=== PATIENT | female | born 1975 | race Caucasian/White ===

== ENCOUNTER 2024-11-28 07:41 | Outpatient (RCR) | payer MEDICAID, SELFPAY ==
--- NOTE | 2024-11-17 18:57 | CTCCONSULT_ITS ---
Patient: ROSA RICHARD : 1975 MR#: [id number] Page 2 of 3 CONSULTATION NOTE DATE OF CONSULTATION: 11/14/2024 NAME: ROSA RICHARD ACCOUNT: [id number] : 1975 AGE: 49 REFERRING PHYSICIAN: Veronica Cespedes MD PRIMARY PHYSICIAN: Veronica Cespedes MD REASON FOR VISIT: Request for mammogram secondary to high risk family history HISTORY OF PRESENT ILLNESS: 49-year-old female is here to establish care. Patient says that her sister who was 1 year younger th an her last month of breast cancer. Patient also had an aunt who in her 30s and another si ster who at 47. Patient's grandma also had breast cancer. Patient's mother also away and is brought to the clinic with her aunt. No self history of breast cancer. OTHER MEDICAL HISTORY/CONDITIONS: ASTHMA HX ANEMIA HIGH CHOLESTEROL ENDOMETRISIS CHROHNS DISEASE SCHIZOPHRENIA/BIPOLAR DISORDER ANXIETY/DEPRESSION PTSD SEIZURES- LAST SZ 3 DAYS AGO FIBROMYALGIA OSTEOPENIA UTIS CARPAL TUNNEL SUICIDE ATTEMPTS BY MULTIPLE DRUG OVERDOSES/BENZODIAZEPINES KIDNEY STONES LEFT SIDE PARTIAL HYSTERECTOMY 2017 APPENDECTOMY CHOLECYSTECTOMY TUBAL LIGATION , LEFT OVARY REMOVED EXPLORATORY LAPAROTOMY EGD/COLONOSCOPY LAST YEAR FAMILY HISTORY: Father: COLON CANCER DX AT 71, UNCLE AND GRANDPA PROSTATE CA Mother: DENIES, MATERNAL GRANDMA BREAST CANCER DX AT 62, AUNT UTERIN Sibling: SISTER PASSED IN 40S, FROM BREAST CANCER Children:?DENIES Cancer?History:?DENIES SOCIAL HISTORY: Occupational?History:?DISABLED Education?Level:?Completed 10th grade Marital?Status:? Tobacco?Use:?DENIES ETOH?Use:?DENIES Drug?Note:?DENIES [employer] WORKER HISTORY: Menarche?-?Age:?14 Hormone?Use:?ADMITS?BC?PILLS?IN?PAST :?5 Live?Births:?4 Age?1st?:?17 Nipple?discharge:?N-No Gynecological?Note:?LAST MENSES IN 2017/HYSTERECTOMY Gynecological?Note?2:?4 MATERNAL AUNTS, 3 SISTERS, 2 DAUGHTERS MEDICATIONS: 1. albuterol - 90 mcg/actuation 1 Puff(s) As directed 2. Arnuity Ellipta - 200 mcg/actuation 2 Puff(s) As directed 3. divalproex - 500 mg 2 tab Daily 4. folic acid - 1 mg 1 tab Daily 5. hydroxyzine HCl - 25 mg 1 tab Daily 6. lamoTRIgine - 100 mg 1 tab Daily 7. loratadine - 10 mg 1 Capsule Daily 8. lurasidone - 20 mg 1 tab Daily 9. omeprazole - 40 mg 1 Capsule Daily 10. ondansetron - 4 mg 1 tab Daily 11. prazosin - 1 mg 1 Capsule Daily Medications Last Reconciled by Jaclyn Slater MD on 11/14/2024 ALLERGIES: No Known Allergies REVIEW OF SYSTEMS: A complete 14-point review of systems was performed and is negative except as noted in interval histo ry. PHYSICAL EXAMINATION: VITAL SIGNS: Temperature?97.7, B/P?105/72, Height?64?inches, Oxygen?Saturation?96% Weight?132?lbs PAIN: 0 - No pain ECOG Performance Status: 0 - Asymptomatic and fully active GENERAL APPEARANCE: Appears well, in no apparent distress, appropriately interactive. HEENT: Normocephalic, no temporal wasting, normal conjunctiva, no scleral icterus, normal hearing, li ps without lesions, neck normal range of motion. CARDIOVASCULAR: Not assessed. PULMONARY: Normal respiratory effort, no respiratory distress or use of accessory muscles, speaking i n full sentences, no tachypnea. EXTREMITIES: No pedal edema or cyanosis. SKIN: Normal skin appearance. NEUROLOGIC: Alert and oriented x4. PSHYCHIATRIC: Appropriate affect, mood normal, behavior normal, intact thought and speech. Breast examination do not reveal any palpable masses LABORATORY DATA: I have personally reviewed and interpreted each of Ms. Richard?s relevant lab tests, abnormal finding s are below: Date ASSESSMENT/PLAN: High risk genetic history of breast cancer Patient is likely high risk through get breast cancer secondary to first and second-degree relatives with breast cancer Also history of prostate cancer in the family Patient is good candidate to start early screening ORDERS: Please refer patient to: RETURN TO CLINIC: BILLING AND COMPLIANCE: I reviewed external records from providers outside my specialty as summarized above. I spent a total of 50 minutes on this patient?s care on the day of their visit excluding time spent related to any bi lled procedures. This time includes time spent with the patient as well as time spent documenting in the medical record, reviewing patients records and tests, obtaining history, placing orders, communi cating with other healthcare professionals, counseling the patient, family or caregiver, and/or care coordination for the diagnoses above. Electronically Signed by: Cliff Simpson MD T: 6:54 PM CC: PCP: Veronica Cespedes Referring: Veronica Cespedes This document was completed utilizing speech recognition software. Grammatical errors, random word in sertions, pronoun errors, and incomplete sentences are an occasional consequence of this system due t o software limitations, ambient noise, and hardware issues. Any formal questions or concerns about th e content, text or information contained within the body of this dictation should be directly address ed to the provider for clarification.
[2024-11-28 09:02] LABS: Misc Send Out* See Sep Rpt
== END 2024-12-06 23:59 | disposition home or self-care (01) ==
LOC: SCTC 07:41
PROVIDERS: PCP Physician Assistant; Referring Provider Physician Assistant; Visit Provider Internal Medicine Hematology & Oncology
DX: Z76.89 Persons encountering health services in other specified circumstances (principal); Z80.3 Family history of malignant neoplasm of breast; Z80.42 Family history of malignant neoplasm of prostate
CPT/HCPCS: 36415; 99213; G0463

== ENCOUNTER → 2024-12-13 | Outpatient (CLI) | payer MEDICAID, SELFPAY ==
--- NOTE | 2024-12-13 14:45 | XR_ITS ---
Examination: Screening digital mammography, bilateral Computer aided detection 3-D breast Tomosynthesis, bilateral Date and time of exam: December 13, 2024 1509 hours Compared to mammograms dating February 21, 2013 Indication: Screening, NST, sister breast cancer Technique: Nonmagnified MLO, CC views of the breasts to been obtained, reconstructed from 3-D Tomosynthesis images. R2 computer aided detection program utilized for evaluation of suspicious masses and/or abnormal calcifications. 3-D Tomosynthesis images obtained. Findings: The breasts are heterogeneously dense, which may obscure small masses Benign calcifications. No suspicious masses Impression: BI-RADS category II: Benign Findings. Recommend 1 year follow-up mammogram. Given the strong family history breast cancer, consider baseline bilateral breast sonography follow-up
== END | disposition home or self-care (01) ==
LOC: CDIM 14:52
PROVIDERS: Referring Provider Internal Medicine Hematology & Oncology; Visit Provider Internal Medicine Hematology & Oncology
DX: Z12.31 Encounter for screening mammogram for malignant neoplasm of breast (principal); R92.323 Mammographic fibroglandular density, bilateral breasts; Z80.3 Family history of malignant neoplasm of breast
CPT/HCPCS: 77063; 77067

== ENCOUNTER 2024-12-16 07:26 | Outpatient (RCR) | payer MEDICAID, SELFPAY | END 2025-01-03 23:59 | disposition home or self-care (01) | LOC: SCTC 07:26 | PROVIDERS: PCP Physician Assistant; Referring Provider Physician Assistant; Visit Provider Nurse Practitioner Family | DX: Z71.2 Person consulting for explanation of examination or test findings (principal); Z80.3 Family history of malignant neoplasm of breast; Z80.42 Family history of malignant neoplasm of prostate | CPT/HCPCS: 99212; G0463 ==

== ENCOUNTER → 2025-02-17 | Outpatient (CLI) | payer MEDICAID, SELFPAY ==
--- NOTE | 2025-02-17 15:30 | XR_ITS ---
Examination: Breast ultrasound complete, bilateral Date and time of exam: February 17, 2025 at 1537 hours INDICATIONS: Family history breast cancer Technique: Real-time grayscale ultrasonographic imaging bilateral breasts, including all 4 quadrants as well as nipple retroareolar and axillary regions. Findings: Sonographic images right breast No cystic or solid mass Sonographic images left breast 1:00 cyst 9 x 8 mm 3:00 oval mass lobular margins 9 x 8 mm 6:00 cyst 5 x 4 mm IMPRESSION: BI-RADS Category 3: Probably benign findings One additional 6 month left breast sonogram follow-up is needed to document stability of 3:00 solid nodule left breast described above
== END | disposition home or self-care (01) ==
LOC: CDIM 15:08
PROVIDERS: PCP Physician Assistant; Referring Provider Nurse Practitioner Family; Visit Provider Nurse Practitioner Family
DX: N63.25 Unspecified lump in the left breast, overlapping quadrants (principal); Z80.3 Family history of malignant neoplasm of breast
CPT/HCPCS: 76641

== ENCOUNTER → 2025-02-27 | Outpatient (CLI) | payer MEDICAID, SELFPAY ==
--- NOTE | 2025-02-27 09:30 | XR_ITS ---
Examination: MRI breasts bilateral without intravenous contrast MRI breast bilateral with intravenous contrast Exam date and time: February 27, 2025 0950 hours Comparison bilateral breast sonography February 17, 2025, mammogram December 13, 2024 INDICATIONS: Family history breast cancer, including sister and grandmother Technique an findings: Bilateral breast MRI images pre and post 12 cc gadolinium Breast architecture is heterogeneously dense, which may obscure small masses No suspicious dominant mass lesion No architectural distortion No chest wall mass or pathologic lymphadenopathy No focal areas on the kinetic analysis curves of rapid wash-in and rapid washout IMPRESSION: BI-RADS Category 2: Benign findings Please see the bilateral breast sonography report February 17, 2025 requiring six-month left breast sonogram follow-up
== END | disposition home or self-care (01) ==
PROVIDERS: PCP Physician Assistant; Referring Provider Nurse Practitioner Family; Visit Provider Nurse Practitioner Family
DX: R92.8 Other abnormal and inconclusive findings on diagnostic imaging of breast (principal); Z80.3 Family history of malignant neoplasm of breast
CPT/HCPCS: 77049; A9579; C8908

== ENCOUNTER 2025-03-11 15:17 | Outpatient (RCR) | payer MEDICAID, SELFPAY | END 2025-04-05 23:59 | disposition home or self-care (01) | LOC: SCTC 15:17 | PROVIDERS: PCP Physician Assistant; Referring Provider Physician Assistant; Visit Provider Nurse Practitioner Family | DX: N63.25 Unspecified lump in the left breast, overlapping quadrants (principal); Z15.01 Genetic susceptibility to malignant neoplasm of breast; Z15.09 Genetic susceptibility to other malignant neoplasm; Z80.3 Family history of malignant neoplasm of breast; Z80.42 Family history of malignant neoplasm of prostate; Z80.0 Family history of malignant neoplasm of digestive organs | CPT/HCPCS: 99212; G0463 ==

== ENCOUNTER 2025-04-05 10:26 | Emergency (ER) | payer MEDICAID, SELFPAY ==
[2025-04-05 10:52] VITALS: BP 101/65; PULSE 72; RESP 16; TEMP 36.6; O2SAT 97; BMI 23.7
--- NOTE | 2025-04-05 11:23 | XR_ITS ---
Examination: Pelvic ultrasound, transabdominal, complete Technique: Transabdominal ultrasound of the pelvis performed using grayscale imaging Date and time of exam: April 05, 2025 1132 hrs. Indications: Pelvic pain beginning 2 days ago Findings: Absent uterus Right ovary 2.4 cm arterial flow Left ovary removed 2018 Impression: Normal right ovary
--- NOTE | 2025-04-05 11:24 | EDRME_ITS ---
<Statement entered by Ivette Barnes MD - 04/15/25 01:01> As co-signing physician, I was present and available for consult prn. I concur with the plan and care as documented by the midlevel provider. Rapid Medical Screening Exam RME Arrival date/time: 04/05/25 10:26 This is a 49-year-old female that comes in with complaints of right lower pelvic pain. Patient states she is having some mild vaginal bleeding. Patient states she has had a history of ovarian cyst rupture in the past. Patient denies any urinary symptoms. Patient denies any fever. She states she has had a hysterectomy in the past. I have greeted and performed a focused initial assessment of this patient. Init ial appropriate labs ordered at this time. A comprehensive ED assessment and evaluation of the patient and analysis of all test and completion of medical decision making process will be conducted by additional ED provider. Chief Complaint: Abdominal Pain Time Seen by Provider: 04/05/25 11:14 Vital signs: Vital Signs Temperature 97.8 F 04/05/25 10:52 Pulse Rate 72 04/05/25 10:52 Respiratory Rate 16 04/05/25 10:52 Blood Pressure 101/65 04/05/25 10:52 Pulse Oximetry (%) 97 04/05/25 10:52 Oxygen Delivery Method Room Air 04/05/25 10:52
[2025-04-05 12:16] LABS: Collection Type, Urine Voided
[2025-04-05 12:18] LABS: Basophils % (Auto) 1 % (0-2.5); Eosinophils # (Auto) 0.1 Thou/mm3 (0.0-0.5); Eosinophils % (Auto) 1 % (0-10); Hematocrit 35.1 % (36.0-46.0); Hemoglobin 12.1 g/dL (12.0-16.0); Immature Granulocytes % (Auto) 0 % (0-0); Immature Granulocytes Auto 0.02 Thou/mm3 (0.00-0.00); Lymphocytes # (Auto) 1.9 Thou/mm3 (1.0-4.8); Lymphocytes % (Auto) 32 % (10-50); Mean Corpuscular HGB Conc 34.5 g/dl (31.0-37.0); Mean Corpuscular Hemoglobin 30.2 pg (25.0-35.0); Mean Corpuscular Volume 88 fL (80-100); Monocytes # (Auto) 0.4 Thou/mm3 (0.0-0.8); Monocytes % (Auto) 7 % (0-12); Neutrophils # (Auto) 3.5 Thou/mm3 (1.8-7.7); Neutrophils % (Auto) 59 % (37-80); Nucleated Red Blood Cell % 0 /100 WBC (0); Platelet Count 199 Thou/mm3 (140-440); RDW Standard Deviation 41.7 fL (36.4-46.3); Red Blood Count 4.01 Miln/mm3 (4.00-5.20); White Blood Count 5.8 Thou/mm3 (3.6-11.0)
[2025-04-05 12:36] LABS: Bilirubin,Urine Negative (Negative); Blood,Urine Negative (Negative); Clarity,Urine Turbid (Clear/Hazy); Color,Urine Yellow (Lt Yel-Yel); Culture Indicated,Urine Not Indicated; Glucose, Urine Negative (Negative); Ketones,Urine 1+ (Negative); Leukocyte Esterase,Urine Positive (Negative); Nitrite,Urine Negative (Negative); PH,Urine 6.5 (5.0-7.0); Protein,Urine Trace (Neg - Trace); RBC,Urine 12 /hpf (0-3); Specific Gravity,Urine 1.029 (1.001-1.035); Squamous Epithelial Cell,Urine 17 /hpf (0-5); Urobilinogen,Urine Negative mg/dL (0.0-1.0); WBC,Urine 6 /hpf (0-5)
[2025-04-05 12:37] LABS: Alanine Aminotransferase 12 U/L (10-49); Albumin, Serum 4.7 gm/dL (3.5-5.0); Albumin/Globulin Ratio 2.4 (1.2-2.2); Alkaline Phosphatase 47 U/L (46-116); Anion Gap 11 (7-16); Aspartate Amino Transferase 15 U/L (0-34); BUN/Creatinine Ratio 23 Ratio (12-20); Bilirubin,Total 0.4 mg/dL (0.3-1.2); Blood Urea Nitrogen 21 mg/dL (9-23); Calcium 9.1 mg/dL (8.3-10.6); Calcium (Corrected) 9.1 mg/dL (8.5-10.1); Carbon Dioxide 32.2 mMol/L (20.0-31.0); Chloride 105 mMol/L (98-107); Creatinine (Component) 0.9 mg/dL (0.6-1.3); Glucose 89 mg/dL (74-106); Lipase 28 U/L (12-53); Osmolality,Calculated 296 (275-295); Potassium 4.3 mMol/L (3.4-5.1); Sodium 148 mMol/L (136-145); Total Protein 6.7 gm/dL (5.7-8.2); eGFR > 60 See Note
[2025-04-05 12:45] LABS: HCG Qualitative,Urine Negative
--- NOTE | 2025-04-05 16:33 | XR_ITS ---
Examination: CT abdomen with intravenous contrast CT pelvis with intravenous contrast 2-D coronal reconstructions 2-D sagittal reconstructions Date and time of exam:April 05, 2025 1752 hours Comparison January 27, 2024 INDICATIONS: Right lower abdominal pain beginning 2 days ago, history right hydronephrosis 4 mm distal right ureteral calculus January 27, 2024. CTDI: vol (mGy) 6.5 DLP: (mGycm) 325 Technique: Multiple axial sections of the abdomen and pelvis have been obtained. 64 slice high-resolution scanner used. 3 mm axial sections have been obtained, post intravenous injection 60 cc of Isovue 370 2-D sagittal, coronal reconstructions obtained. Low dose protocols were performed. One or more of the following dose reduction techniques were used; automated exposure control, adjustment of the mA and/or KV according to patient size, use of iterative reconstruction technique. Findings: No focal liver or splenic lesions Absent gallbladder No pancreatic or adrenal mass Minimal wall thickening right pelvicalyceal system, no renal or ureteral calculi, no hydronephrosis Absent appendix, no pericecal inflammatory change No bowel obstruction No diverticulitis Contracted urinary bladder Moderate osteopenia Absent uterus No pelvic mass IMPRESSION: Minimal wall thickening right pelvicalyceal system, consider right urinary tract infection No renal or ureteral calculi, no hydronephrosis No CT findings of bowel obstruction or diverticulitis
--- NOTE | 2025-04-05 16:34 | PD.EDABDPN ---
ED Abdominal Pain RME/HPI General Chief Complaint: Abdominal Pain Stated complaint: abdominal pain Time seen by provider: 04/05/25 11:14 Arrival date/time: 04/05/25 10:26 RME / HPI RME / HPI narrative: 49-year-old female that comes in with complaints of right lower abdomen/pelvic pain. Patient states she is having some mild vaginal bleeding. Pain is described as dull ache, severity moderate. Patient states she has had a history of ovarian cyst rupture in the past. Patient denies any urinary symptoms. Patient denies any fever. She states she has had a hysterectomy in the past. Related Data Home Medications ?Medication ?Instructions ?Recorded ?Confirmed azathioprine 50 mg tablet (Imuran) 50 mg PO QDAY #0 tabs 05/15/17 06/23/21 prazosin 1 mg capsule (Minipress) 1 mg PO HS #0 caps 05/17/17 06/23/21 sulfasalazine 500 mg tablet 1 tab PO TID ##0 05/17/17 06/23/21 albuterol sulfate 90 mcg/actuation 2 puff inhalation Q4HR PRN 05/29/17 06/23/21 aerosol inhaler (Ventolin HFA) SHORTNESS OF BREATH OR WHEEZE ##18 divalproex 500 mg tablet,extended 2,000 mg PO QDAY 05/21/19 06/23/21 release 24 hr (Depakote ER) lurasidone 20 mg tablet (Latuda) 20 mg PO QDAY 05/21/19 06/23/21 fluticasone furoate 200 1 inh inhalation Q24H 06/23/21 06/23/21 mcg/actuation blister powder for inhalation (Arnuity Ellipta) folic acid 1 mg tablet 1 mg PO QDAY 06/23/21 06/23/21 hydroxyzine HCl 25 mg tablet 25 mg PO BID PRN Anxiety 06/23/21 06/23/21 Previous Rx's ?Medication ?Instructions ?Recorded ondansetron HCl 4 mg tablet 4 mg PO QID PRN nausea and 09/26/19 (Zofran) vomiting #30 tabs albuterol sulfate 90 mcg/actuation 2 puff inhalation QID PRN 05/29/21 aerosol inhaler shortness of breath or wheezing #18 grams docusate sodium 100 mg capsule 100 mg PO BID #40 caps 06/24/21 (Colace) hydrocodone 5 mg-acetaminophen 325 1 tab PO Q6H PRN pain (scale score 06/24/21 mg tablet 7-10) #20 tabs ibuprofen 600 mg tablet 600 mg PO Q8H PRN pain (scale 06/24/21 score 4-6) #15 tabs dicyclomine 20 mg tablet 20 mg PO BID abdominal pain #30 05/13/22 tabs hydrocodone 7.5 mg-acetaminophen 1 tab PO Q6H PRN pain #16 tabs 01/27/24 325 mg tablet ibuprofen 600 mg tablet 600 mg PO Q8H PRN pain #14 tabs 02/01/24 tamsulosin 0.4 mg capsule 0.4 mg PO QDAY #7 caps 02/01/24 ibuprofen 600 mg tablet 600 mg PO Q6H #30 tabs 05/06/24 hydrocodone 5 mg-acetaminophen 325 1 tab PO BID PRN pain #10 tabs 05/29/24 mg tablet cefuroxime axetil 500 mg tablet 500 mg PO BID #14 tabs 04/05/25 ibuprofen 800 mg tablet 800 mg PO TID PRN pain #30 tabs 04/05/25 Allergies Allergy/AdvReac Type Severity Reaction Status Date / Time No Known Allergies Allergy Verified 04/05/25 10:29 Review of Systems Review of Systems Narrative Review of Systems: Review of system reviewed and within normal limits except mentioned in HPI ED Exam Narrative Physical exam: VITAL SIGNS: Reviewed. GENERAL APPEARANCE: Alert and interactive, follows commands, no acute distress, HEAD AND FACE: Non-traumatic. ENT: PERRL, pink conjunctivitis, eyelid no trauma, Mucous membrane moist. NECK: Supple, nontender, no nuchal rigidity. CHEST: No tenderness, no crepitus, no paradoxical movement, no retractions. LUNGS: Clear, well ventilated, symmetric, no rales, no wheezing, no ronchi, no stridor, good breath sounds bilaterally. HEART: Regular rate, regular rhythm, no murmur, no gallops. ABDOMEN: Soft, positive bowel sounds, nondistended, no guarding, right lower quadrant tenderness, no rebound, no masses, RECTAL: Deferred. GENITAL: Deferred. NEUROLOGICAL: Gross motor function intact sensory function intact, Appropriate for age. MUSCULOSKELETAL: low back nontender, full range of motion. EXTREMITIES: Nontender, full range of motion. SKIN: Color pink, dry, no rash, no lacerations, no abrasions, no contusions. LYMPHATICS: Deferred. Course Quality Measures none Orders Category Date Time Status CT Screening NOW Care 04/05/25 16:[address] abdomen pelvis w con Stat Exams 04/05/25 16:33 Completed US pelvic complete Stat Exams 04/05/25 11:23 Completed CBC Stat Lab 04/05/25 12:02 Completed Comprehensive Metabolic Panel Stat Lab 04/05/25 12:02 Completed HCG Qualitative,Urine Stat Lab 04/05/25 12:00 Completed Lipase Stat Lab 04/05/25 12:02 Completed Urinalysis, C/S if Indicated Stat Lab 04/05/25 12:00 Completed Ketorolac Inj [Toradol Inj] Med 04/05/25 16:33 Discontinued 30 mg IVP X1 ONE Ondansetron Inj [Zofran Inj] Med 04/05/25 18:09 Discontinued 4 mg IVP X1 ONE cephALEXin [Keflex] Med 04/05/25 16:34 Discontinued 500 mg PO X1 ONE Vital Signs Vital signs: Vital Signs Temperature 97.8 F 04/05/25 10:52 Pulse Rate 72 04/05/25 10:52 Respiratory Rate 16 04/05/25 10:52 Blood Pressure 101/65 04/05/25 10:52 Pulse Oximetry (%) 97 04/05/25 10:52 Oxygen Delivery Method Room Air 04/05/25 10:52 Abdominal Pain MDM MDM Narrative MDM Narrative:: 49-year-old female that comes in with complaints of right lower abdomen/pelvic pain. Patient states she is having some mild vaginal bleeding. Pain is described as dull ache, severity moderate. Patient states she has had a history of ovarian cyst rupture in the past. Patient denies any urinary symptoms. Patient denies any fever. She states she has had a hysterectomy in the past. Patient's workup is significant for a UTI. Ultrasound of the pelvis came back unremarkable. CT scan of the abdomen pelvis showed Minimal wall thickening right pelvicalyceal system, consider right urinary tract infection No renal or ureteral calculi, no hydronephrosis No CT findings of bowel obstruction or diverticulitis Patient received Toradol IM and Keflex. Was also given Zofran. Patient data External records reviewed:: None Clinical information provided by:: patient Social determinants that could affect healthcare access:: none Patient has the following chronic illnesses:: None How is presenting disease/condition affected by chronic disease/condition?: no chronic disease Evaluation data The following diagnostics were reviewed and interpreted by me:: lab results and radiology exam(s) Lab and/or radiology exams considered but not ordered:: None Interpretation Summary: See results MDM Medications / Prescriptions Medications or Prescriptions considered but not ordered:: None Medication administrations:: Medication Administration History Discontinued Medications Cephalexin HCl (Cephalexin 250 Mg Capsule) 500 mg PO X1 ONE Stop: 04/05/25 16:35 Last Admin: 04/05/25 17:30 Dose: 500 mg Documented By: Ketorolac Tromethamine (Ketorolac Inj 30 Mg/Ml Vial) 30 mg IVP X1 ONE Stop: 04/05/25 16:34 Last Admin: 04/05/25 17:30 Dose: 30 mg Documented By: Ondansetron HCl (Ondansetron Inj 2 Mg/Ml Inj 2 Ml) 4 mg IVP X1 ONE; Protocol Stop: 04/05/25 18:10 Zofran Toradol and Keflex Consultations Consultation(s) initiated? (list below): No Diagnosis Differential diagnosis abdominal pain: abdominal pain, small bowel obstruction and other (UTI) Most likely diagnosis given after review of the tests above:: UTI Admission Indicated Admission indicated?: not indicated Admission Request Was there a request for admission?: No Disposition Plan Disposition Plan: Discharge Discharge Attestation Discharge Attestation: The patient and all family members were given an opportunity to ask questions and understood the discharge instructions. Discharge instructions specifically effects, indications for sooner follow up or return to the emergency department, and the expected course of current diagnosis. Patient condition: Stable Discharge Plan Plan Patient Disposition: HOME (Self Care) Discharge Disposition comment: Stable Prescriptions/Referrals Prescriptions/Med Rec: New cefuroxime axetil 500 mg tablet 500 mg PO BID Qty: 14 0RF ibuprofen 800 mg tablet 800 mg PO TID PRN (Reason: pain) Qty: 30 0RF No Action azathioprine [Imuran] 50 MG tablet 50 mg PO QDAY Qty: 0 sulfasalazine 500 MG tablet 1 tab PO TID Qty: 0 prazosin [Minipress] 1 MG capsule 1 mg PO HS Qty: 0 albuterol sulfate [Ventolin HFA] 200 PUFF/INH HFA aerosol inhaler 2 puff Inhalation Q4HR PRN (Reason: SHORTNESS OF BREATH OR WHEEZE) Qty: 18 divalproex [Depakote ER] 500 mg Tablet Extended Release 24 Hr 2,000 mg PO QDAY Latuda 20 mg Tablet 20 mg PO QDAY albuterol sulfate 90 mcg/actuation HFA aerosol inhaler 2 puff inhalation QID PRN (Reason: shortness of breath or wheezing) Qty: 18 0RF dicyclomine 20 mg tablet 20 mg PO BID Qty: 30 0RF ondansetron HCl [Zofran] 4 mg tablet 4 mg PO QID PRN (Reason: nausea and vomiting) Qty: 30 0RF folic acid 1 mg Tablet 1 mg PO QDAY hydroxyzine HCl 25 mg Tablet 25 mg PO BID PRN (Reason: Anxiety) Arnuity Ellipta 200 mcg/actuation Blister With Device 1 inh INHALATION Q24H hydrocodone-acetaminophen 5-325 mg tablet 1 tab PO Q6H MDD 4 PRN (Reason: pain (scale score 7-10)) Qty: 20 0RF docusate sodium [Colace] 100 mg capsule 100 mg PO BID Qty: 40 0RF ibuprofen 600 mg tablet 600 mg PO Q8H PRN (Reason: pain (scale score 4-6)) Qty: 15 0RF hydrocodone-acetaminophen 7.5-325 mg tablet 1 tab PO Q6H MDD 4 PRN (Reason: pain) Qty: 16 0RF tamsulosin 0.4 mg capsule 0.4 mg PO QDAY Qty: 7 0RF ibuprofen 600 mg tablet 600 mg PO Q8H PRN (Reason: pain) Qty: 14 0RF ibuprofen 600 mg tablet 600 mg PO Q6H Qty: 30 0RF hydrocodone-acetaminophen 5-325 mg tablet 1 tab PO BID MDD 10mg PRN (Reason: pain) Qty: 10 0RF Referrals: Veronica Cespedes PA-C [Primary Care Provider] - In 1 week Problem List Clinical Impression: Abdominal pain, UTI (urinary tract infection) Patient/Caregiver Discharge Instructions Discharge Activity: activity as tolerated Education Materials: Understanding Urinary Tract ... Additional Instructions: Thank you for the opportunity for serving you today. You are stable for discharged . You are advised to: Follow-up with your PCP in 1 to 2 days Return to ED for worsening of symptoms Increase oral fluids Take medication as prescribed Print Language: Egyptian Stand Alone Forms: Bettie Award Info., Patient Portal Info Letter PA/HOSIERY MENDER Supervising Physician PA/HOSIERY MENDER Supervising Physician: MD Victoria
[2025-04-05] MEDS: cephALEXin 250 MG CAPSULE 500 MG PO (17:30)
[2025-04-05] MEDS: KETOROLAC INJ 30 MG/ML VIAL IVP (17:30)
[2025-04-05] MEDS: ONDANSETRON INJ 2 MG/ML INJ 2 ML 4 MG IVP (19:02)
== END 2025-04-05 19:09 | disposition home or self-care (01) ==
PROVIDERS: Nurse Practitioner Family; Emergency Provider Emergency Medicine; PCP Physician Assistant
DX: N39.0 Urinary tract infection, site not specified (principal)
CPT/HCPCS: 36415; 74177; 76856; 80053; 81001; 81025; 83690; 85025; 96374; 96375; 99285; A4649; J1885; J2405; Q9967; A9270

== ENCOUNTER 2025-09-28 11:01 | Emergency (ER) | payer MEDICAID, SELFPAY ==
[2025-09-28 11:36] VITALS: BP 109/72; PULSE 79; RESP 18; TEMP 36.7; O2SAT 97; BMI 24.9
--- NOTE | 2025-09-28 11:47 | PD.EDDENTL ---
ED Dental RME/HPI General Chief complaint: Dental/Oral/Throat Stated complaint: UNABLE TO SWALLOW Time Seen by Provider: 09/28/25 11:04 Arrival date/time: 09/28/25 11:01 This is a 49-year-old female that comes into the emergency room with complaints of throat pain. Patient was diagnosed with bacterial infection to the back of her throat. Patient was given an antibiotic shot in the office but states this morning she was having a lot of throat pain and it hurt to swallow. Patient has not picked up her antibiotics or pain medication. Related Data Home Medications ?Medication ?Instructions ?Recorded ?Confirmed azathioprine 50 mg tablet (Imuran) 50 mg PO QDAY #0 tabs 05/15/17 06/23/21 prazosin 1 mg capsule (Minipress) 1 mg PO HS #0 caps 05/17/17 06/23/21 sulfasalazine 500 mg tablet 1 tab PO TID ##0 05/17/17 06/23/21 albuterol sulfate 90 mcg/actuation 2 puff inhalation Q4HR PRN 05/29/17 06/23/21 aerosol inhaler (Ventolin HFA) SHORTNESS OF BREATH OR WHEEZE ##18 divalproex 500 mg tablet,extended 2,000 mg PO QDAY 05/21/19 06/23/21 release 24 hr (Depakote ER) lurasidone 20 mg tablet (Latuda) 20 mg PO QDAY 05/21/19 06/23/21 fluticasone furoate 200 1 inh inhalation Q24H 06/23/21 06/23/21 mcg/actuation blister powder for inhalation (Arnuity Ellipta) folic acid 1 mg tablet 1 mg PO QDAY 06/23/21 06/23/21 hydroxyzine HCl 25 mg tablet 25 mg PO BID PRN Anxiety 06/23/21 06/23/21 Previous Rx's ?Medication ?Instructions ?Recorded ondansetron HCl 4 mg tablet 4 mg PO QID PRN nausea and 09/26/19 (Zofran) vomiting #30 tabs albuterol sulfate 90 mcg/actuation 2 puff inhalation QID PRN 05/29/21 aerosol inhaler shortness of breath or wheezing #18 grams docusate sodium 100 mg capsule 100 mg PO BID #40 caps 06/24/21 (Colace) hydrocodone 5 mg-acetaminophen 325 1 tab PO Q6H PRN pain (scale score 06/24/21 mg tablet 7-10) #20 tabs ibuprofen 600 mg tablet 600 mg PO Q8H PRN pain (scale 06/24/21 score 4-6) #15 tabs dicyclomine 20 mg tablet 20 mg PO BID abdominal pain #30 05/13/22 tabs hydrocodone 7.5 mg-acetaminophen 1 tab PO Q6H PRN pain #16 tabs 01/27/24 325 mg tablet ibuprofen 600 mg tablet 600 mg PO Q8H PRN pain #14 tabs 02/01/24 tamsulosin 0.4 mg capsule 0.4 mg PO QDAY #7 caps 02/01/24 ibuprofen 600 mg tablet 600 mg PO Q6H #30 tabs 05/06/24 hydrocodone 5 mg-acetaminophen 325 1 tab PO BID PRN pain #10 tabs 05/29/24 mg tablet cefuroxime axetil 500 mg tablet 500 mg PO BID #14 tabs 04/05/25 ibuprofen 800 mg tablet 800 mg PO TID PRN pain #30 tabs 04/05/25 Allergies Allergy/AdvReac Type Severity Reaction Status Date / Time No Known Allergies Allergy Verified 09/28/25 11:04 Review of Systems Review of Systems Systems Reviewed: All systems reviewed, normal except as documented Past Medical History Past Medical History NEUROLOGIC: Positive Neurological Disorders, Seizures and Epilepsy CARDIAC: Positive Heart Murmur; Negative Cardiac Disorders, Congestive Heart Failure, Edema, Cellulitis or Varicose Veins RESPIRATORY: Positive Pneumonia; Negative Chronic Obstructive Pulmonary Disease (COPD) or Asthma GASTROINTESTINAL: Positive Gastrointestinal Disorders, Gall Bladder Disease, Colitis, Irritable Bowel, Crohn's Disease, Hiatal Hernia and Gastroesophageal Reflux Disease; Negative Hepatitis GENITOURINARY: Positive Kidney Stones; Negative Genitourinary Disorders or Renal Disease REPRODUCTIVE: Positive Endometriosis and Previous Pregnancies MUSCULOSKELETAL: Positive Musculoskeletal Disorders, Arthritis, Scoliosis and Fibromyalgia ENDOCRINE: Negative Endocrine Disorders, Diabetes Mellitus Type 1 or Diabetes Mellitus Type 2 HEMATOLOGIC: Negative Blood Disorders or Sickle Cell Disease PSYCHO/SOCIAL: Positive Bipolar Disorder, Depression, Anxiety, Depression and Post Traumatic Stress Disorder OTHER HISTORY: Positive Hospitalization, Autoimmune Disease, Chicken Pox, Cancer and Cervical Cancer; Negative Shingles, Falls, Blood Transfusions, Blood Transfusion Reaction, Anesthesia Reactions, Chemotherapy, Radiation Therapy, MRSA, Measles or Mumps Family History FAMILY HISTORY: Positive Family Psychiatric Problems, Family Respiratory Disorders, Family Cardiac Disorders, Family Gastrointestinal Problems and Family Surgery; Negative Family Cancer or Family Anesthesia Reaction Surgical History SURGICAL: Positive Hysterectomy and Tubal Ligation; Negative Pacemaker Social History SMOKING STATUS: Never smoker SUBSTANCE USE: does not use ED Exam Narrative Physical exam: VITAL SIGNS: Reviewed. GENERAL APPEARANCE: Alert and interactive, follows commands, no acute distress HEAD AND FACE: Non-traumatic. ENT: PERRL, conjuctiva pink and clear, eyelid no trauma, Mucous membrane moist. Posterior pharynx erythemic tonsils slightly swollen. NECK: Supple, nontender, no nuchal rigidity. CHEST: No tenderness, no crepitus, no paradoxical movement, no retractions. LUNGS: breathing even and unlabored HEART: Regular rate, cap refill less than 2 seconds ABDOMEN: Soft, nondistended, no guarding, nontender NEUROLOGICAL: Gross motor function intact sensory function intact, Appropriate for age. MUSCULOSKELETAL: low back nontender, full range of motion. EXTREMITIES: No redness no swelling no skin breakdown on bilateral foot and leg. Distal neurovascular status intact bilateral foot SKIN: Color pink, dry, no rash, no lacerations, no abrasions, no contusions. Course Orders Category Date Time Status Dexamethasone Inj [Decadron Inj] Med 09/28/25 11:47 Discontinued 10 mg PO X1 ONE Ibuprofen Tab [Motrin Tab] Med 09/28/25 11:47 Discontinued 800 mg PO X1 ONE Vital Signs Vital signs: Vital Signs Temperature 98.0 F 09/28/25 11:36 Pulse Rate 79 09/28/25 11:36 Respiratory Rate 18 09/28/25 11:36 Blood Pressure 109/72 09/28/25 11:36 Pulse Oximetry (%) 97 09/28/25 11:36 Oxygen Delivery Method Room Air 09/28/25 11:36 Dental / Oral MDM Narrative MDM Narrative:: Patient did not lease picker antibiotics at the pharmacy. Will give patient a dose of steroids and a dose ibuprofen. patient told to lease picker antibiotics and pain medication. Patient has not been taking anything for pain. Patient states it hurts to swallow. Patient told to take antibiotics as prescribed. Come back to the emergency room if symptoms change or worsen. Patient feels comfortable plan of care. Dragon dictation: Although this document has been carefully reviewed, there may still be some phonetic and other typographical errors. These errors are purely grammatical due to imperfections in the software program and should not be construed in any way to compromise the substance of the patient's medical care during this visit. Medications / Prescriptions Medication administrations:: Medication Administration History Discontinued Medications Dexamethasone Sodium Phosphate (Dexamethasone Sod Phos Inj 10 Mg/Ml Vial) 10 mg PO X1 ONE Stop: 09/28/25 11:48 Ibuprofen (Ibuprofen Tab 400 Mg Tablet) 800 mg PO X1 ONE Stop: 09/28/25 11:48 Discharge Plan Plan Patient Disposition: HOME (Self Care) Patient condition on transfer: Stable Prescriptions/Referrals Prescriptions/Med Rec: No Action azathioprine [Imuran] 50 MG tablet 50 mg PO QDAY Qty: 0 sulfasalazine 500 MG tablet 1 tab PO TID Qty: 0 prazosin [Minipress] 1 MG capsule 1 mg PO HS Qty: 0 albuterol sulfate [Ventolin HFA] 200 PUFF/INH HFA aerosol inhaler 2 puff Inhalation Q4HR PRN (Reason: SHORTNESS OF BREATH OR WHEEZE) Qty: 18 divalproex [Depakote ER] 500 mg Tablet Extended Release 24 Hr 2,000 mg PO QDAY Latuda 20 mg Tablet 20 mg PO QDAY albuterol sulfate 90 mcg/actuation HFA aerosol inhaler 2 puff inhalation QID PRN (Reason: shortness of breath or wheezing) Qty: 18 0RF dicyclomine 20 mg tablet 20 mg PO BID Qty: 30 0RF ondansetron HCl [Zofran] 4 mg tablet 4 mg PO QID PRN (Reason: nausea and vomiting) Qty: 30 0RF folic acid 1 mg Tablet 1 mg PO QDAY hydroxyzine HCl 25 mg Tablet 25 mg PO BID PRN (Reason: Anxiety) Arnuity Ellipta 200 mcg/actuation Blister With Device 1 inh INHALATION Q24H hydrocodone-acetaminophen 5-325 mg tablet 1 tab PO Q6H MDD 4 PRN (Reason: pain (scale score 7-10)) Qty: 20 0RF docusate sodium [Colace] 100 mg capsule 100 mg PO BID Qty: 40 0RF ibuprofen 600 mg tablet 600 mg PO Q8H PRN (Reason: pain (scale score 4-6)) Qty: 15 0RF hydrocodone-acetaminophen 7.5-325 mg tablet 1 tab PO Q6H MDD 4 PRN (Reason: pain) Qty: 16 0RF tamsulosin 0.4 mg capsule 0.4 mg PO QDAY Qty: 7 0RF ibuprofen 600 mg tablet 600 mg PO Q8H PRN (Reason: pain) Qty: 14 0RF ibuprofen 600 mg tablet 600 mg PO Q6H Qty: 30 0RF hydrocodone-acetaminophen 5-325 mg tablet 1 tab PO BID MDD 10mg PRN (Reason: pain) Qty: 10 0RF cefuroxime axetil 500 mg tablet 500 mg PO BID Qty: 14 0RF ibuprofen 800 mg tablet 800 mg PO TID PRN (Reason: pain) Qty: 30 0RF Problem List Clinical Impression: Acute bacterial tonsillitis Patient/Caregiver Discharge Instructions Discharge Activity: activity as tolerated Education Materials: Tonsillitis in Adults Additional Instructions: Follow up with primary provider in 1-2 days. Come back to ED if symptoms change or worsen Print Language: Nigerien Stand Alone Forms: Bettie Award Info., Patient Portal Info Letter PA/BUSINESS OBJECTS ARCHITECT Supervising Physician PA/BUSINESS OBJECTS ARCHITECT Supervising Physician: korin
[2025-09-28] MEDS: DEXAMETHASONE SOD PHOS INJ 10 MG/ML VIAL PO (11:59)
[2025-09-28] MEDS: IBUPROFEN TAB 400 MG TABLET 800 MG PO (11:59)
== END 2025-09-28 12:12 | disposition home or self-care (01) ==
LOC: SERX 12:05
PROVIDERS: Emergency Provider Emergency Medicine; PCP Physician Assistant
DX: J03.90 Acute tonsillitis, unspecified (principal)
CPT/HCPCS: 99281; J1100; A9270

== ENCOUNTER → 2025-10-13 | Outpatient (CLI) | payer MEDICAID, SELFPAY ==
--- NOTE | 2025-10-13 08:45 | XR_ITS ---
Examination: Breast ultrasound, unilateral, left complete Date and time of exam: October,, 0856 hours INDICATIONS: Family history of breast cancer, sister, bilateral breast sonography February 17, 2025 left breast 3:00 nodule 9 x 8 mm Technique: Real-time parks scale ultrasonographic imaging performed left breast including all 4 quadrants as well as nipple retroareolar and axillary region. Findings: 1:00 cyst 5 x 5 mm 3:00 nodule lobular margins 10 x 10 mm IMPRESSION: BI-RADS Category 3: Probably benign findings Recommend 1 additional 6-month left breast sonogram follow-up to document continued stability of 3:00 nodule described above
== END | disposition home or self-care (01) ==
LOC: CDIM 08:30
PROVIDERS: PCP Physician Assistant; Referring Provider Nurse Practitioner Family; Visit Provider Nurse Practitioner Family
DX: N63.25 Unspecified lump in the left breast, overlapping quadrants (principal); Z80.3 Family history of malignant neoplasm of breast
CPT/HCPCS: 76641

== ENCOUNTER 2025-10-22 11:22 | Outpatient (RCR) | payer MEDICAID, SELFPAY | END 2025-11-05 23:59 | disposition home or self-care (01) | LOC: SCTC 11:22 | PROVIDERS: PCP Physician Assistant; Referring Provider Physician Assistant; Visit Provider Nurse Practitioner Family | DX: Z76.89 Persons encountering health services in other specified circumstances (principal); Z80.3 Family history of malignant neoplasm of breast; Z15.01 Genetic susceptibility to malignant neoplasm of breast | CPT/HCPCS: 99212; G0463 ==